=== PATIENT | female | born 1995 | race Caucasian/White ===

== ENCOUNTER 2019-05-16 15:06 | Inpatient (IN) | payer BC ==
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
[2019-05-16 15:55] LABS: Urine Appearance Clear; Urine Bilirubin Negative (Negative); Urine Blood 2+ (Negative); Urine Color Yellow; Urine Glucose Negative (Negative); Urine Ketones Negative (Negative); Urine Nitrite Negative (Negative); Urine Protein Negative (Negative); Urine Specific Gravity 1.011 (1.010-1.030); Urine Urobilinogen Negative (Negative)
[2019-05-16 15:56] LABS: Hematocrit 42 % (35-47); Hemoglobin 14.2 g/dL (12.0-16.0); Mean Corpuscular HGB Conc 34 g/dL (31-36); Mean Corpuscular Hemoglobin 31 pg (27-31); Mean Corpuscular Volume 92 fL (80-97); Mean Platelet Volume 8.9 fL (7.4-10.4); Platelet Count 204 10^3/uL (150-450); Red Blood Count 4.51 10^6 /uL (3.70-4.87); Red Cell Distribution Width 12 % (10-15); White Blood Count 4.3 10^3/uL (3.5-10.8)
[2019-05-16 16:02] LABS: Urine Bacteria Absent (Absent); Urine Red Blood Cell Trace(0-2/hpf) (Absent); Urine Squamous Epithelial Cell Present (Absent); Urine White Blood Cell Absent (Absent)
[2019-05-16 16:20] LABS: HCG Pregnancy < 0.60 mIU/mL
[2019-05-16 16:27] LABS: Urine Benzodiazepine Screen None Detected (None Detect); Urine Opiates Screen None Detected (None Detect)
[2019-05-16 16:30] LABS: ALT 10 U/L (7-52); AST 20 U/L (13-39); Albumin 4.4 g/dL (3.2-5.2); Albumin/Globulin Ratio 1.5 (1-3); Alkaline Phosphatase 52 U/L (34-104); Anion Gap 5 mmol/L (2-11); BUN/Creatinine Ratio 15.7 (8-20); Blood Urea Nitrogen 11 mg/dL (6-24); CO2 Carbon Dioxide 27 mmol/L (22-32); Calcium 9.3 mg/dL (8.6-10.3); Chloride 106 mmol/L (101-111); EGFR African American 125.5 (>60); EGFR Non-African American 103.7 (>60); Globulin 2.9 g/dL (2-4); Glucose 85 mg/dL (70-100); Sodium 138 mmol/L (135-145); Total Protein 7.3 g/dL (6.4-8.9)
[2019-05-16 16:35] LABS: ABS Basophils 0.1 10^3/ul (0-0.2); ABS Lymphocytes 1.3 10^3/ul (1.0-4.8); ABS Monocytes 0.4 10^3/ul (0-0.8); ABS Neutrophils 2.5 10^3/ul (1.5-7.7); Eosinophil % 0.7 %; Lymphocyte % 31.4 %
[2019-05-16 16:56] LABS: Acetaminophen < 15 mcg/mL; Alcohol < 10 mg/dL (<10); Salicylate < 2.50 mg/dL (<30)
--- NOTE | 2019-05-16 21:01 | ED ---
Progress - Progress Note Progress Note: Receiving sign-out at shift change 1900 pending [facility]. Patient medically stable throughout. [facility] decided to admit the patient with a Dx of anxiety, depression, PTSD, and OCD , per Dr. Dyson, Psychiatry. Re-Evaluation - Re-Evaluation First Eval Re-Evaluation Time: 15:34 Change: Unchanged Comment: At 15:34, patient is medically cleared for a mental health evaluation. Course/Dx - Course Course Of Treatment: Receiving sign-out at shift change 1900 pending [facility]. Patient medically stable throughout. [facility] decided to admit the patient with a Dx of anxiety, depression, PTSD, and OCD, per Dr. Dyson, Psychiatry. - Diagnoses Provider Diagnoses: Anxiety, Depression, PTSD (post-traumatic stress disorder), OCD (obsessive compulsive disorder) Discharge ED - Sign-Out/Discharge Documenting (check all that apply): Patient Departure - Admission, per E - Discharge Plan Condition: Stable Disposition: [place]IATR[facility] [place]AC[place] [place] Billing Disposition and Condition Condition: STABLE Disposition: Psychiatric Facility [facility] [place] - Attestation Statements Document Initiated by Scribe: Yes Documenting Scribe: Ayden Romero Provider For Whom Scribe is Documenting (Include Credential): John Neil MD Scribe Attestation: Ayden Dos Santos, scribed for John Neil MD on 05/17/19 at 0525. Scribe Documentation Reviewed: Yes Provider Attestation: The documentation as recorded by the Ayden jiménez accurately reflects the service I personally performed and the decisions made by me, John Neil MD Status of Scribe Document: Viewed
[2019-05-16] MEDS ORDERED: Acetaminophen TAB* 325 MG PO PRN (22:50)
[2019-05-16] MEDS ORDERED: Al Hydrox/Mg Hydrox/Simet LIQ* 30 ML UDC PO PRN (22:50)
[2019-05-16] MEDS ORDERED: Mirtazapine TAB* 15 MG PO ONE (23:00)
[2019-05-16] MEDS ORDERED: Gabapentin CAP(*) 100 MG PO ONE (23:00)
[2019-05-17] MEDS: Vitamin THERAPEUTIC TAB PO SCH (09:48)
[2019-05-17] MEDS ORDERED: Gabapentin CAP(*) 100 MG PO ONE (10:27)
--- NOTE | 2019-05-17 11:22 | PN ---
BSU: Group Therapy Note - Service Type Service Type: [id number] Group Psychotherapy - Cognitive Behavioral Group Therapy ( CBT):Patient was attentive and participatory in CBT programming this morning, and remained in good behavioral control. Patient expressed positive insights regarding relevant treatment interventions and goals.
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
[2019-05-17] MEDS: Gabapentin CAP(*) 100 MG PO SCH ×2 (17:02→21:17)
[2019-05-17] MEDS: LORazepam TAB(*) 0.5 MG PO PRN (19:32)
[2019-05-17] MEDS ORDERED: Mirtazapine TAB* 15 MG PO SCH (21:00)
[2019-05-17] MEDS: Sertraline* 50 MG TAB PO SCH (21:14)
[2019-05-17] MEDS: Ibuprofen TAB* 600 MG PO PRN (21:15)
[2019-05-18] MEDS: Gabapentin CAP(*) 100 MG PO SCH ×3 (08:42→21:04)
[2019-05-18] MEDS: Vitamin THERAPEUTIC TAB PO SCH (08:44)
[2019-05-18] MEDS: Ibuprofen TAB* 600 MG PO PRN (10:07)
[2019-05-18] MEDS: LORazepam TAB(*) 0.5 MG PO PRN (10:08)
--- NOTE | 2019-05-18 12:03 | PN ---
BSU: Group Therapy Note - Service Type Service Type: [id number] Group Psychotherapy - Cognitive Behavioral Group Therapy ( CBT):Patient was attentive and participatory in CBT programming this morning, and remained in good behavioral control. Patient expressed positive insights regarding relevant treatment interventions and goals.
[2019-05-18] MEDS ORDERED: Ondansetron TAB* 4 MG PO PRN (14:18)
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
--- NOTE | 2019-05-18 16:07 | PN ---
BSU: Group Therapy Note - Service Type Service Type: [id number] Group Psychotherapy - Medication Education Group: Patient was attentive and participatory in group, and remained in good behavioral control. Patient expressed positive insights regarding relevant treatment interventions. Patient stated understanding of material discussed and had appropriate questions.
[2019-05-18] MEDS ORDERED: Mirtazapine TAB* 15 MG PO SCH (21:00)
[2019-05-18] MEDS: Sertraline* 50 MG TAB PO SCH (21:03)
[2019-05-19] MEDS: LORazepam TAB(*) 0.5 MG PO PRN ×2 (05:15→18:01)
[2019-05-19 08:12] LABS: HDL Cholesterol 53.3 mg/dL
[2019-05-19 09:06] VITALS: BP 110/70
[2019-05-19] MEDS: Gabapentin CAP(*) 100 MG PO SCH ×2 (09:06→16:53)
[2019-05-19] MEDS: Vitamin THERAPEUTIC TAB PO SCH (09:08)
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
--- NOTE | 2019-05-19 11:43 | PN ---
BSU: Group Therapy Note - Service Type Service Type: [id number] Group Psychotherapy - Cognitive Behavioral Group Therapy ( CBT):Patient was attentive and participatory in CBT programming this morning, and remained in good behavioral control. Patient expressed positive insights regarding relevant treatment interventions and goals.
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
== END 2019-05-19 18:31 | disposition home or self-care (01) | DRG 755 ==
LOC: ED 15:06 → BSU 20:50
PROVIDERS: ADMIT Psychiatry & Neurology Psychiatry; ATTEND Psychiatry & Neurology Psychiatry
PROC: GZHZZZZ Group Psychotherapy (ICD-10-PCS; principal; 2019-05-17)
DX: F43.10 Post-traumatic stress disorder, unspecified (principal); F33.2 Major depressive disorder, recurrent severe without psychotic features; R45.851 Suicidal ideations; F41.9 Anxiety disorder, unspecified; Z62.810 Personal history of physical and sexual abuse in childhood; Z91.5 Personal history of self-harm
CPT/HCPCS: 36415; 80053; 80061; 80307; 80320; 80329; 81003; 81015; 83036; 84702; 85025; 90853; 96130; 99222; 99232; 99238; 99284; A9270-GY; G0480